=== PATIENT | female | born 1995 | race Caucasian/White ===

== ENCOUNTER 2022-08-27 09:25 | Emergency (ER) | payer OTHER ==
[~2022-08-27] VITALS: Ht 157.5 cm; Wt 59.0 kg
[2022-08-27 09:35] VITALS: BP 142/96
--- NOTE | 2022-08-27 09:48 | NUR ---
amb bed 12
--- NOTE | 2022-08-27 10:10 | NUR ---
MD performed vaginal check on patient. tolerated well. RN at bedside the whole procedure.
[2022-08-27 10:22] LABS: APPEARANCE,URINE CLEAR (CLEAR); BILIRUBIN,URINE NEGATIVE (NEGATIVE); BLOOD, URINE 1+ (NEGATIVE); COLOR,URINE YELLOW (YELLOW); LEUKOCYTE ESTERASE ,URINE 1+ (NEGATIVE); NITRITE, URINE NEGATIVE (NEGATIVE); PH,URINE 8.5 (5.0-9.0); UGLUCOSE NEGATIVE (NEGATIVE)
[2022-08-27 10:39] LABS: RBC,URINE 0-5 /HPF (0-5)
[2022-08-27] MEDS ORDERED: CEPH-588 PO (11:02)
== END 2022-08-27 11:23 | disposition home or self-care (01) ==
LOC: MED 09:25
DX: N93.9 Abnormal uterine and vaginal bleeding, unspecified (principal); Z79.2 Long term (current) use of antibiotics
CPT/HCPCS: 81001; 81025; 87086; 99283